=== PATIENT | female | born 1930 | race Caucasian/White ===

== ENCOUNTER → 2016-09-01 | Outpatient (CLI) | payer MEDICARE, BC ==
[~2016-09-01] MED LIST: ANAS1TAB8 PO; ATEN100T77 PO; BENZ-16 PO; CALC-850 PO; CITA10TA7 PO; CYAN10006 INJ; FLUT16SP NAS; HYDR-4072 PO; HYDR25TA PO; IOHEXOL 180 MG/ML 20ml INJECTION ONE; LEVO100T83 PO; LIDOCAINE 1% (10mg/ml) 5ml VIAL ONE; LISI-625 PO; LOPE2CAP PO; MAGN400T6 PO; MECL12.585 PO; METF500T4 PO; METR500T PO; MULT-806 PO; MethylPREDNISolone ACETATE 40mg/1ml ONE; OMEP10CA4 PO; ONDA4TAB10 PO; POTA-81 PO; PRED1TAB PO; PRED5TAB PO; PROC5TAB59 PO; SIMV10TA76 PO; SULF500T27 PO; VITA-286 PO; [UNRECOGNIZED DRUG - REMARK]
--- NOTE | 2016-09-01 15:57 | DI ---
Indication:ITS.REASON: M51.36 Other intervertebral disc degeneration; M54.6 RAD Procedure:EPIDURAL INJ.SPINE W FLUO CATH LUMBAR EPIDURAL INJECTION: The patient has low back and radicular pain. The patient has had a previous epidural that provided moderate relief. The details of the procedure, including the benefits, risks, and alternatives were explained to the patient. All of their questions were answered. They stated that they understood and wished to proceed. Informed consent was then obtained. A pre-procedural timeout was performed to confirm the correct patient and procedure. Utilizing aseptic technique, local lidocaine anesthetic, and fluoroscopic guidance throughout, a 22-gauge spinal needle was directed into the lumbar epidural space via an interlaminar approach at the L5-S1 level. Contrast was injected to assure proper positioning of the needle tip. A fluoroscopic image was then taken and archived. Subsequently, 120 mg Depo-Medrol was injected into the epidural space. The patient tolerated the procedure well. IMPRESSION: Successful lumbar epidural steroid injection. Fluoroscopy dose: 25.67 mGy (Cumulative air kerma) Semaj Jain RPA/KEARA performed this under my personal supervision. .
== END ==
LOC: IMA 13:42
PROVIDERS: ATTEND Family Medicine Sports Medicine
DX: M51.36 Other intervertebral disc degeneration, lumbar region (principal); M54.16 Radiculopathy, lumbar region
CPT/HCPCS: 62323; J1030; Q9965

== ENCOUNTER → 2016-10-28 | Outpatient (CLI) | payer MEDICARE, BC ==
[~2016-10-28] MED LIST changes: -IOHEXOL 180 MG/ML 20ml INJECTION ONE; -LIDOCAINE 1% (10mg/ml) 5ml VIAL ONE; -MethylPREDNISolone ACETATE 40mg/1ml ONE
== END ==
LOC: WC.BC 15:52
PROVIDERS: ATTEND Family Medicine
DX: C50.911 Malignant neoplasm of unspecified site of right female breast (principal); N64.59 Other signs and symptoms in breast
CPT/HCPCS: G0204; G0279